=== PATIENT | female | born 1985 | race African-American/Black ===

== ENCOUNTER 2022-01-25 14:29 | Emergency (ER) | payer MEDICAID ==
[~2022-01-25] VITALS: Ht 152.4 cm; Wt 53.0 kg
[2022-01-25] MEDS ORDERED: ACETAMINOPHEN 325MG TABLET PO STA (15:28)
[2022-01-25] MEDS ORDERED: ACETAMINOPHEN 500MG TABLET PO NR (19:00)
[2022-01-25 21:03] VITALS: BP 125/76
== END 2022-01-25 21:27 | disposition home or self-care (01) ==
LOC: ER 14:29
DX: R51.9 Headache, unspecified (principal); M54.2 Cervicalgia; M54.9 Dorsalgia, unspecified; V43.52XA Car driver injured in collision with other type car in traffic accident, initial encounter; Y93.89 Activity, other specified; Y92.89 Other specified places as the place of occurrence of the external cause; Z88.6 Allergy status to analgesic agent
CPT/HCPCS: 76705; 99284

== ENCOUNTER 2024-03-11 06:00 | Emergency (ER) | payer MEDICAID ==
[~2024-03-11] VITALS: Ht 152.4 cm; Wt 49.8 kg
[2024-03-11 06:06] VITALS: BP 129/49; PULSE 94; RESP 18; TEMP 98.6; O2SAT 100
[2024-03-11] MEDS: TETRACAINE 0.5% OPHTH DROPS 4ML LEFTEYE ONE (07:15)
[2024-03-11] MEDS: FLUORESCEIN SODIUM 1MG/STRIP LEFTEYE ONE (07:15)
[2024-03-11] MEDS ORDERED: TRIMO LEFTEYE (08:43)
== END 2024-03-11 11:14 | disposition home or self-care (01) ==
LOC: ER 06:00
DX: S00.212A Abrasion of left eyelid and periocular area, initial encounter (principal); Z88.6 Allergy status to analgesic agent; X58.XXXA Exposure to other specified factors, initial encounter; Y93.89 Activity, other specified; Y92.89 Other specified places as the place of occurrence of the external cause; Y99.8 Other external cause status
CPT/HCPCS: 99283